=== PATIENT | male | born 1930 | race Caucasian/White ===

== ENCOUNTER 2017-11-05 13:05 | Day surgery (SDC) | payer MEDICARE, OTHER ==
[~2017-11-05] VITALS: Ht 170.2 cm; Wt 77.0 kg
[2017-11-05] MEDS ORDERED: fentaNYL/PF 50MCG/1 ML 2ML syringe ONE (13:21)
[2017-11-05] MEDS ORDERED: LIDOcaine Viscous 15ml cup ONE (13:21)
[2017-11-05] MEDS ORDERED: MIDAZolam 5mg/5ml vial ONE (13:21)
[2017-11-05] MEDS ORDERED: METH5TAB2 PO (13:32)
[2017-11-05] MEDS ORDERED: METO25TA6 PO (13:33)
[2017-11-05] MEDS ORDERED: OMEP20CA10 PO (13:34)
[2017-11-05] MEDS ORDERED: IRON150C10 (13:34)
[2017-11-05] MEDS ORDERED: PARO20TA6 PO (13:35)
[2017-11-05] MEDS ORDERED: POTA-82 PO (13:37)
[2017-11-05] MEDS ORDERED: LACT10SO PO (13:38)
[2017-11-05] MEDS ORDERED: FURO40TA4 PO (13:38)
[2017-11-05] MEDS ORDERED: ASPI-611 PO (13:39)
[2017-11-05] MEDS ORDERED: [UNRECOGNIZED DRUG - OTHER] (13:40)
[2017-11-05 13:47] VITALS: BP 128/66
[2017-11-05 14:15] VITALS: BP 149/71
[2017-11-05 14:25] VITALS: BP 131/60
[2017-11-05 14:35] VITALS: BP 142/67
[2017-11-05 14:45] VITALS: BP 142/71
== END 2017-11-05 14:50 | disposition home or self-care (01) ==
LOC: GI LAB 13:05
PROVIDERS: ATTEND Internal Medicine Gastroenterology
DX: K29.70 Gastritis, unspecified, without bleeding (principal); Z90.3 Acquired absence of stomach [part of]
CPT/HCPCS: 43235; J2250; J3010; J7030; A4620; G0500